=== PATIENT | male | born 1955 | race Caucasian/White ===

== ENCOUNTER 2017-08-15 08:37 | Emergency (ER) | payer SELFPAY ==
[~2017-08-15] VITALS: Ht 182.9 cm; Wt 90.7 kg
[2017-08-15] MEDS ORDERED: IBUPROFEN 400 MG TABLET PO ONE (09:30)
[2017-08-15] MEDS ORDERED: CEPHALEXIN MONOHYDRATE 500 MG CAPSULE PO ONE ×3 (09:30→09:57)
[2017-08-15] MEDS ORDERED: SULFAMETH/TRIMETH 800/160 MG 1 UDTAB TABLET PO ONE ×3 (09:30→09:57)
[2017-08-15] MEDS ORDERED: IBUPROFEN 400 MG TABLET ONE ×2 (09:31→09:57)
[2017-08-15 10:03] VITALS: BP 152/98
--- NOTE | 2017-08-15 10:03 | NUR ---
Patient discharged to home in stable condition. Written and verbal after care instructions given. Patient verbalizes understanding of instruction.
== END 2017-08-15 10:03 | disposition home or self-care (01) ==
LOC: ER 08:39
DX: L03.811 Cellulitis of head [any part, except face] (principal)
CPT/HCPCS: 99284; A4606; Z7610